=== PATIENT | male | born 1960 | race African-American/Black ===

== ENCOUNTER 2017-06-04 15:01 | Inpatient (IN) | payer BC ==
[2017-06-04] MEDS: diazePAM 5 MG TABLET PO (16:45)
[2017-06-04] MEDS: IV NORMAL SALINE 1000ML BAG 1,000 ML IV ×2 (17:41→19:15)
[2017-06-04 17:45] LABS: ADD MAN DIFF? NO
[2017-06-04 17:46] LABS: BASO % 1 % (0-3); EOS # 0.1 x10^3/uL (0.0-0.7); EOS % 2 % (0-3); HEMATOCRIT 42.5 % (39.0-53.0); HEMOGLOBIN 13.9 g/dL (13.0-17.5); LYMPH # 1.9 x10^3/uL (1.0-4.8); LYMPH % 40 % (24-48); MEAN CORPUSCULAR HEMOGLOBIN 25 pg (25-35); MEAN CORPUSCULAR HGB CONC 33 g/dL (31-37); MEAN CORPUSCULAR VOLUME 76 fL (79-100); MONO # 0.4 x10^3/uL (0.0-1.1); MONO % 9 % (0-9); NEUT # 2.4 x10^3uL (1.8-7.7); NEUT % 49 % (31-73); PLATELET COUNT 165 x10^3/uL (140-400); RED BLOOD COUNT 5.57 x10^6/uL (4.30-5.70); RED CELL DISTRIBUTION WIDTH 14.3 % (11.5-14.5); WHITE BLOOD COUNT 4.8 x10^3/uL (4.0-11.0)
[2017-06-04 17:50] LABS: BILIRUBIN,URINE NEGATIVE (NEG); CLARITY,URINE CLOUDY; COLOR,URINE AMBER; GLUCOSE,URINE NEGATIVE (NEG); NITRITE,URINE NEGATIVE (NEG); PH,URINE 5.5; PROTEIN,URINE 100 mg/dL (NEG-TRACE)
[2017-06-04 17:54] LABS: BARBITURATES NEG (NEG); BENZODIAZEPINES NEG (NEG); CANNABINOIDS NEG (NEG); COCAINE NEG (NEG); METHADONE NEG (NEG); OPIATES NEG (NEG); PHENCYCLIDINE NEG (NEG)
[2017-06-04 17:58] LABS: AMPHETAMINE/METHAMPHETAMINE NEG (NEG); ETHANOL, URINE NEG (NEG)
[2017-06-04 18:03] LABS: AMORPHOUS SEDIMENT,UR PRESENT /HPF; BACTERIA,URINE 0 /HPF (0-FEW); RBC,URINE OCC /HPF (0-2); WBC,URINE OCC /HPF (0-4)
[2017-06-04 18:14] LABS: ANION GAP 10 (6-14); BLOOD UREA NITROGEN 22 mg/dL (8-26); BUN/CREATININE RATIO 17 (6-20); CALCIUM 8.8 mg/dL (8.5-10.1); CARBON DIOXIDE 27 mmol/L (21-32); CHLORIDE 104 mmol/L (98-107); CREATININE 1.3 mg/dL (0.7-1.3); GFR 69.3; GLUCOSE 119 mg/dL (70-99); POTASSIUM 3.4 mmol/L (3.5-5.1); SODIUM 141 mmol/L (136-145)
[2017-06-04 18:21] LABS: LACTIC ACID 1.5 mmol/L (0.4-2.0)
[2017-06-04 18:29] LABS: ALBUMIN 3.2 g/dL (3.4-5.0); ALBUMIN/GLOBULIN RATIO 0.8 (1.0-1.7); ALK PHOS 68 U/L (46-116); ALT (SGPT) 145 U/L (16-63); AST (SGOT) 449 U/L (15-37); TOTAL BILIRUBIN 0.2 mg/dL (0.2-1.0); TOTAL PROTEIN 7.1 g/dL (6.4-8.2)
[2017-06-04 18:33] LABS: TROPONINI 0.077 ng/mL (0.000-0.055)
[2017-06-04] MEDS ORDERED: fentaNYL PF VIAL 100 MCG/2 ML VIAL IV (18:45)
[2017-06-04] MEDS ORDERED: ONDANSETRON PF 4 MG/2 ML VIAL. IV (18:45)
[2017-06-04 21:53] LABS: CREATINE KINASE 71382 U/L (39-308)
[2017-06-04 22:06] LABS: TROPONINI 0.081 ng/mL (0.000-0.055)
[2017-06-04] MEDS ORDERED: NON FORMULARY ITEM (Albuterol Sulfate (Proair Respiclick) 2 PUFF) IH (22:45)
[2017-06-04] MEDS: ENOXAPARIN 40 MG/0.4 ML SYRINGE. SQ (23:39)
[2017-06-04] MEDS: amLODIPine BESYLATE 5 MG TABLET PO (23:41)
[2017-06-05] MEDS: IV NORMAL SALINE 1000ML BAG 1,000 ML IV ×3 (00:30→10:26)
[2017-06-05 00:55] LABS: ADD MAN DIFF? NO
[2017-06-05 01:05] LABS: BASO % 1 % (0-3); EOS # 0.1 x10^3/uL (0.0-0.7); EOS % 2 % (0-3); HEMATOCRIT 38.5 % (39.0-53.0); HEMOGLOBIN 12.7 g/dL (13.0-17.5); LYMPH % 44 % (24-48); MEAN CORPUSCULAR HEMOGLOBIN 25 pg (25-35); MEAN CORPUSCULAR HGB CONC 33 g/dL (31-37); MEAN CORPUSCULAR VOLUME 76 fL (79-100); MONO # 0.5 x10^3/uL (0.0-1.1); MONO % 11 % (0-9); NEUT # 1.9 x10^3uL (1.8-7.7); NEUT % 43 % (31-73); PLATELET COUNT 152 x10^3/uL (140-400); RED BLOOD COUNT 5.06 x10^6/uL (4.30-5.70); RED CELL DISTRIBUTION WIDTH 14.3 % (11.5-14.5); WHITE BLOOD COUNT 4.5 x10^3/uL (4.0-11.0)
[2017-06-05 01:33] LABS: TROPONINI 0.079 ng/mL (0.000-0.055)
[2017-06-05 01:38] LABS: ANION GAP 8 (6-14); BLOOD UREA NITROGEN 22 mg/dL (8-26); CALCIUM 8.3 mg/dL (8.5-10.1); CARBON DIOXIDE 28 mmol/L (21-32); CHLORIDE 107 mmol/L (98-107); CREATININE 1.3 mg/dL (0.7-1.3); GFR 69.3; GLUCOSE 151 mg/dL (70-99); POTASSIUM 3.3 mmol/L (3.5-5.1); SODIUM 143 mmol/L (136-145)
[2017-06-05 02:23] LABS: CREATINE KINASE 107000 U/L (39-308)
[2017-06-05] MEDS ORDERED: PNEUMOC CONJ VACC 23-VALENT 0.5 ML VIAL. VAX IM (06:30)
[2017-06-05] MEDS ORDERED: amLODIPine BESYLATE 5 MG TABLET PO (09:00)
[2017-06-05] MEDS: PNEUMOC CONJ VACC 23-VALENT 0.5 ML VIAL. VAX IM (09:00)
[2017-06-05] MEDS: FLUTICASONE 50MCG/NASAL SPRAY 16GM BOTTLE. NS (09:00)
[2017-06-05 09:12] LABS: POC GLUCOSE 111 mg/dL (70-99)
[2017-06-05] MEDS: amLODIPine BESYLATE 5 MG TABLET PO (09:28)
[2017-06-05] MEDS: ENOXAPARIN 40 MG/0.4 ML SYRINGE. SQ ×2 (09:28→20:51)
[2017-06-05 11:02] LABS: CHOLESTEROL 173 mg/dL (0-200); HDLC 27 mg/dL (40-60); LDLC 113 mg/dL (0-100); NON-HDL CHOLESTEROL 146 mg/dL (0-129); TRIGLYCERIDES 164 mg/dL (0-150); VLDLC 33 mg/dL (0-40)
[2017-06-05 11:03] LABS: CHOLESTEROL/HDL RATIO 6.4
[2017-06-05] MEDS: CYCLOBENZAPRINE 10 MG TABLET. PO (11:15)
[2017-06-05] MEDS: SODIUM BICARBONATE VIAL 50 MEQ in IV 1/2 NORMAL SALINE 1,000 ML IV ×2 (11:15→17:29)
[2017-06-05] MEDS ORDERED: hydrALAZINE 20 MG/ML VIAL. IVP (11:30)
[2017-06-05 12:09] LABS: POC GLUCOSE 107 mg/dL (70-99)
[2017-06-05] MEDS ORDERED: ONDANSETRON PF 4 MG/2 ML VIAL. IV (13:15)
[2017-06-05] MEDS ORDERED: MORPHINE SULFATE 2 MG/ML DISP.SYRIN. IV (13:15)
[2017-06-05] MEDS ORDERED: ACETAMINOPHEN 325 MG TABLET. PO (13:15)
[2017-06-05] MEDS: POTASSIUM CHLORIDE 20 MEQ TABLET.ER. PO (14:28)
[2017-06-05] MEDS: hydrALAZINE 20 MG/ML VIAL. IVP (15:03)
[2017-06-05] MEDS: ASPIRIN ENTERIC COATED 81 MG TABLET.DR. PO (17:29)
[2017-06-05] MEDS: METOPROLOL TART IMMED RELEASE 25 MG TABLET. PO (20:52)
[2017-06-05 21:32] LABS: POC GLUCOSE 144 mg/dL (70-99)
[2017-06-06] MEDS: SODIUM BICARBONATE VIAL 50 MEQ in IV 1/2 NORMAL SALINE 1,000 ML IV ×5 (01:29→22:19)
[2017-06-06 04:52] LABS: ADD MAN DIFF? NO
[2017-06-06 05:11] LABS: BASO % 0 % (0-3); EOS # 0.1 x10^3/uL (0.0-0.7); EOS % 1 % (0-3); HEMATOCRIT 39.9 % (39.0-53.0); HEMOGLOBIN 13.1 g/dL (13.0-17.5); LYMPH % 39 % (24-48); MEAN CORPUSCULAR HEMOGLOBIN 25 pg (25-35); MEAN CORPUSCULAR HGB CONC 33 g/dL (31-37); MEAN CORPUSCULAR VOLUME 76 fL (79-100); MONO # 0.4 x10^3/uL (0.0-1.1); MONO % 8 % (0-9); NEUT # 2.5 x10^3uL (1.8-7.7); NEUT % 51 % (31-73); PLATELET COUNT 182 x10^3/uL (140-400); RED BLOOD COUNT 5.25 x10^6/uL (4.30-5.70); RED CELL DISTRIBUTION WIDTH 14.6 % (11.5-14.5)
[2017-06-06 05:48] LABS: ANION GAP 8 (6-14); BLOOD UREA NITROGEN 16 mg/dL (8-26); CALCIUM 8.5 mg/dL (8.5-10.1); CARBON DIOXIDE 28 mmol/L (21-32); CHLORIDE 105 mmol/L (98-107); CREATININE 1.1 mg/dL (0.7-1.3); GFR 84.1; GLUCOSE 104 mg/dL (70-99); PHOSPHORUS 3.3 mg/dL (2.6-4.7); POTASSIUM 3.8 mmol/L (3.5-5.1); SODIUM 141 mmol/L (136-145)
[2017-06-06 06:29] LABS: CREATINE KINASE 102370 U/L (39-308)
[2017-06-06] MEDS: ENOXAPARIN 40 MG/0.4 ML SYRINGE. SQ ×2 (08:17→20:59)
[2017-06-06] MEDS: amLODIPine BESYLATE 5 MG TABLET PO (08:18)
[2017-06-06] MEDS: METOPROLOL TART IMMED RELEASE 25 MG TABLET. PO ×2 (08:18→20:58)
[2017-06-06] MEDS: FLUTICASONE 50MCG/NASAL SPRAY 16GM BOTTLE. NS (08:18)
[2017-06-06] MEDS: ASPIRIN ENTERIC COATED 81 MG TABLET.DR. PO (08:18)
[2017-06-06] MEDS: traMADol 50 MG TABLET PO (13:08)
[2017-06-06] MEDS: CYCLOBENZAPRINE 10 MG TABLET. PO (20:58)
[2017-06-07] MEDS: SODIUM BICARBONATE VIAL 50 MEQ in IV 1/2 NORMAL SALINE 1,000 ML IV ×5 (02:41→20:44)
[2017-06-07] MEDS: ALBUTEROL SULFATE 2.5 MG/3 ML NEBU. NEB (07:53)
[2017-06-07 08:40] LABS: ANION GAP 6 (6-14); BLOOD UREA NITROGEN 15 mg/dL (8-26); CALCIUM 8.3 mg/dL (8.5-10.1); CARBON DIOXIDE 31 mmol/L (21-32); CHLORIDE 105 mmol/L (98-107); CREATINE KINASE 78634 U/L (39-308); GFR 93.9; GLUCOSE 105 mg/dL (70-99); POTASSIUM 3.8 mmol/L (3.5-5.1); SODIUM 142 mmol/L (136-145)
[2017-06-07] MEDS: METOPROLOL TART IMMED RELEASE 25 MG TABLET. PO ×2 (08:44→20:43)
[2017-06-07] MEDS: DOCUSATE SODIUM 100 MG CAPSULE. PO (08:44)
[2017-06-07] MEDS: ASPIRIN ENTERIC COATED 81 MG TABLET.DR. PO (08:44)
[2017-06-07] MEDS: amLODIPine BESYLATE 10 MG TABLET PO (08:44)
[2017-06-07] MEDS: ENOXAPARIN 40 MG/0.4 ML SYRINGE. SQ ×2 (08:45→20:43)
[2017-06-07] MEDS: FLUTICASONE 50MCG/NASAL SPRAY 16GM BOTTLE. NS (09:00)
[2017-06-07] MEDS: traMADol 50 MG TABLET PO (20:43)
[2017-06-08] MEDS: SODIUM BICARBONATE VIAL 50 MEQ in IV 1/2 NORMAL SALINE 1,000 ML IV ×4 (01:24→20:14)
[2017-06-08 07:03] LABS: CREATINE KINASE 57007 U/L (39-308)
[2017-06-08] MEDS: METOPROLOL TART IMMED RELEASE 25 MG TABLET. PO (08:48)
[2017-06-08] MEDS: amLODIPine BESYLATE 10 MG TABLET PO (08:48)
[2017-06-08] MEDS: ASPIRIN ENTERIC COATED 81 MG TABLET.DR. PO (08:48)
[2017-06-08] MEDS: ENOXAPARIN 40 MG/0.4 ML SYRINGE. SQ ×2 (08:49→20:14)
[2017-06-08] MEDS: FLUTICASONE 50MCG/NASAL SPRAY 16GM BOTTLE. NS (09:00)
[2017-06-08] MEDS: CARVEDILOL 6.25 MG TABLET. PO (19:00)
[2017-06-09] MEDS: hydrALAZINE 20 MG/ML VIAL. IVP (03:18)
[2017-06-09 06:39] LABS: ADD MAN DIFF? NO
[2017-06-09 06:52] LABS: BASO % 0 % (0-3); EOS # 0.1 x10^3/uL (0.0-0.7); EOS % 1 % (0-3); HEMATOCRIT 40.2 % (39.0-53.0); HEMOGLOBIN 12.9 g/dL (13.0-17.5); LYMPH # 1.7 x10^3/uL (1.0-4.8); LYMPH % 37 % (24-48); MEAN CORPUSCULAR HEMOGLOBIN 24 pg (25-35); MEAN CORPUSCULAR HGB CONC 32 g/dL (31-37); MEAN CORPUSCULAR VOLUME 76 fL (79-100); MONO # 0.4 x10^3/uL (0.0-1.1); MONO % 9 % (0-9); NEUT # 2.4 x10^3uL (1.8-7.7); NEUT % 52 % (31-73); PLATELET COUNT 217 x10^3/uL (140-400); RED BLOOD COUNT 5.28 x10^6/uL (4.30-5.70); RED CELL DISTRIBUTION WIDTH 14.2 % (11.5-14.5); WHITE BLOOD COUNT 4.7 x10^3/uL (4.0-11.0)
[2017-06-09 07:13] LABS: ANION GAP 5 (6-14); BLOOD UREA NITROGEN 22 mg/dL (8-26); CARBON DIOXIDE 31 mmol/L (21-32); CHLORIDE 105 mmol/L (98-107); CREATININE 1.1 mg/dL (0.7-1.3); GFR 84.1; GLUCOSE 100 mg/dL (70-99); POTASSIUM 4.1 mmol/L (3.5-5.1); SODIUM 141 mmol/L (136-145)
[2017-06-09 07:53] LABS: CREATINE KINASE 40085 U/L (39-308)
[2017-06-09] MEDS: SODIUM BICARBONATE VIAL 50 MEQ in IV 1/2 NORMAL SALINE 1,000 ML IV ×4 (07:53→17:40)
[2017-06-09] MEDS: amLODIPine BESYLATE 10 MG TABLET PO (08:08)
[2017-06-09] MEDS: ASPIRIN ENTERIC COATED 81 MG TABLET.DR. PO (08:08)
[2017-06-09] MEDS: CARVEDILOL 6.25 MG TABLET. PO (08:09)
[2017-06-09] MEDS: ENOXAPARIN 40 MG/0.4 ML SYRINGE. SQ ×2 (08:09→20:34)
[2017-06-09] MEDS: FLUTICASONE 50MCG/NASAL SPRAY 16GM BOTTLE. NS (08:10)
[2017-06-09] MEDS: CARVEDILOL 12.5 MG TABLET. PO (17:39)
[2017-06-10] MEDS: SODIUM BICARBONATE VIAL 50 MEQ in IV 1/2 NORMAL SALINE 1,000 ML IV ×5 (02:22→21:34)
[2017-06-10 06:13] LABS: CREATINE KINASE 24380 U/L (39-308)
[2017-06-10] MEDS: ASPIRIN ENTERIC COATED 81 MG TABLET.DR. PO (08:19)
[2017-06-10] MEDS: FLUTICASONE 50MCG/NASAL SPRAY 16GM BOTTLE. NS (08:20)
[2017-06-10] MEDS: ENOXAPARIN 40 MG/0.4 ML SYRINGE. SQ ×2 (08:20→21:29)
[2017-06-10] MEDS: amLODIPine BESYLATE 10 MG TABLET PO (08:20)
[2017-06-10] MEDS: CARVEDILOL 12.5 MG TABLET. PO ×2 (08:21→17:00)
[2017-06-11] MEDS: SODIUM BICARBONATE VIAL 50 MEQ in IV 1/2 NORMAL SALINE 1,000 ML IV ×3 (02:59→15:16)
[2017-06-11] MEDS: FLUTICASONE 50MCG/NASAL SPRAY 16GM BOTTLE. NS (09:00)
[2017-06-11 09:22] LABS: CREATINE KINASE 11924 U/L (39-308)
[2017-06-11] MEDS: ASPIRIN ENTERIC COATED 81 MG TABLET.DR. PO (09:26)
[2017-06-11] MEDS: amLODIPine BESYLATE 10 MG TABLET PO (09:26)
[2017-06-11] MEDS: CARVEDILOL 12.5 MG TABLET. PO ×2 (09:27→17:00)
[2017-06-11] MEDS: ENOXAPARIN 40 MG/0.4 ML SYRINGE. SQ (09:28)
== END 2017-06-11 18:00 | disposition home or self-care (01) | DRG 683 ==
LOC: ER 15:01 → 2 SOUTH 18:54
DX: N17.9 Acute kidney failure, unspecified (principal); M62.82 Rhabdomyolysis; K76.0 Fatty (change of) liver, not elsewhere classified; E66.01 Morbid (severe) obesity due to excess calories; Z68.42 Body mass index [BMI] 45.0-49.9, adult; E11.9 Type 2 diabetes mellitus without complications; E78.5 Hyperlipidemia, unspecified; M19.90 Unspecified osteoarthritis, unspecified site; R74.0 Nonspecific elevation of levels of transaminase and lactic acid dehydrogenase [LDH]; E87.6 Hypokalemia; I10 Essential (primary) hypertension; J45.909 Unspecified asthma, uncomplicated; Z82.49 Family history of ischemic heart disease and other diseases of the circulatory system; Z83.3 Family history of diabetes mellitus; Z88.8 Allergy status to other drugs, medicaments and biological substances
CPT/HCPCS: 36415; 76700; 80048; 80053; 80061; 80307; 81001; 82550; 82962; 83605; 83735; 84100; 84484; 85025; 87086; 93005; 93306; 94640; 94760; 94799; 96360; 96361; 99285; 99285-25; J0360; J1650; J7030; J7613